=== PATIENT | male | born 1980 | race Caucasian/White ===

== ENCOUNTER 2024-11-23 06:45 | Emergency (ER) | payer BC ==
[~2024-11-23] VITALS: Ht 188 cm; Wt 60.5 kg
[2024-11-23 06:51] VITALS: TEMP 97.8
[2024-11-23 07:53] VITALS: BP 118/61; PULSE 52; RESP 14; O2SAT 99
== END 2024-11-23 07:57 | disposition home or self-care (01) ==
LOC: ER 06:46
DX: H53.8 Other visual disturbances (principal); W22.8XXA Striking against or struck by other objects, initial encounter; Y93.89 Activity, other specified; Y92.89 Other specified places as the place of occurrence of the external cause; Y99.8 Other external cause status
CPT/HCPCS: 99284